=== PATIENT | male | born 1995 | race African-American/Black ===

== ENCOUNTER 2019-07-28 08:59 | Emergency (ER) | payer SELFPAY ==
[2019-07-28 09:04] VITALS: BP 130/85; PULSE 63; RESP 18; TEMP 97.7
--- NOTE | 2019-07-28 09:11 | ED ---
General Adult HPI - General Chief complaint: Recheck/Abnormal Lab/Rx Stated complaint: recheck/doctor's note Time Seen by Provider: 07/28/19 09:00 Source: patient Mode of arrival: ambulatory Limitations: no limitations - History of Present Illness Initial comments: Patient is a 23-year-old male presents emergency department requesting a work note. Patient states that he missed work last Wednesday because he had a stomach ache. States he went home early. Today his boss had told him that he needed a work note if he wanted to return to work. Patient states he feels great at this time. No current abdominal pain. States he never had any nausea or vomiting. No fevers or chills. Denies dysuria, hematuria or difficulty voiding. Denies diarrhea, constipation, melenic stools or hematochezia. No testicular pain or swelling. no discharge. Patient does not have a primary care physician so followed appear. There are no alleviating, precipitating or modifying factors - Related Data Allergies Allergy/AdvReac Type Severity Reaction Status Date / Time No Known Allergies Allergy Verified 07/28/19 09:04 Review of Systems ROS Statement: Those systems with pertinent positive or pertinent negative responses have been documented in the HPI. ROS Other: All systems not noted in ROS Statement are negative. Past Medical History Past Medical History: No Reported History History of Any Multi-Drug Resistant Organisms: None Reported Past Surgical History: No Surgical Hx Reported Past Psychological History: No Psychological Hx Reported Smoking Status: Current every day smoker Past Alcohol Use History: Rare Past Drug Use History: None Reported General Exam Limitations: no limitations Course Vital Signs 07/28/19 09:00 Temperature 97.7 F Pulse Rate 63 Respiratory 18 Rate Blood Pressure 130/85 O2 Sat by Pulse 98 Oximetry Medical Decision Making - Medical Decision Making She arrives and is placed into room 5. A thorough history is obtained and physical exam is performed. Patient arrives asymptomatic. Patient requests work note to go back to work. I do believe that the patient is clear at this time. I do recommend that he establish care with a primary care physician. Return to the emergency room for any new or worsening symptoms. Patient denies any fevers, chills or shortness of breath. No recent contact with someone positive for Kovic. Patient was in agreement treatment plan he is discharged home in stable condition Disposition Clinical Impression: Abdominal pain Disposition: HOME SELF-CARE Condition: Stable Instructions (If sedation given, give patient instructions): Normal Exam (ED) Additional Instructions: You are clear to return to work Is patient prescribed a controlled substance at d/c from ED?: No Referrals: None,Stated [Primary Care Provider] - 1-2 days Time of Disposition: 09:10
== END 2019-07-28 09:18 | disposition home or self-care (01) ==
LOC: EC 08:59
DX: R10.9 Unspecified abdominal pain (principal); F17.200 Nicotine dependence, unspecified, uncomplicated
CPT/HCPCS: 99283

== ENCOUNTER 2020-10-09 14:47 | Emergency (ER) | payer OTHER ==
[2020-10-09] MEDS ORDERED: IPRATROPIUM-ALBUTEROL 3 ML NEB INHALATION STA (16:47)
--- NOTE | 2020-10-09 16:54 | ED ---
General Adult HPI - General Chief complaint: Abdominal Pain Stated complaint: ABD pain Source: patient, RN notes reviewed Mode of arrival: ambulatory Limitations: no limitations - History of Present Illness Initial comments: 24-year-old pleasant male, anal 4, presents to the emergency room with left groin pain for the past 2 weeks. Patient states that it does come and go. He first noticed it while he was at work while lifting. He has been tender for the past 2 weeks but today when he coughs he felt a sharp pain. He states that he has not felt any lumps in his groin or hernias. He denies any testicular pain or penile discharge. No fevers, nausea vomiting or diarrhea. He is a pack and half day smoker -: week(s) (2) Location: abdomen Radiation: non-radiation Severity scale (1-10): 7 Quality: sharp Consistency: intermittent Improves with: none Worsens with: other (cough or lifting) Associated Symptoms: denies other symptoms Treatments Prior to Arrival: none - Related Data Previous Rx's Medication Instructions Recorded Albuterol Nebulized [Ventolin 2.5 mg INHALATION Q4H PRN 30 Days 10/09/20 Nebulized] #1 inhaler predniSONE 50 mg PO DAILY #5 tab 10/09/20 Allergies Allergy/AdvReac Type Severity Reaction Status Date / Time No Known Allergies Allergy Verified 10/09/20 17:20 Review of Systems ROS Statement: Those systems with pertinent positive or pertinent negative responses have been documented in the HPI. ROS Other: All systems not noted in ROS Statement are negative. Past Medical History Past Medical History: No Reported History History of Any Multi-Drug Resistant Organisms: None Reported Past Surgical History: No Surgical Hx Reported Past Psychological History: No Psychological Hx Reported Smoking Status: Current every day smoker Past Alcohol Use History: Occasional Past Drug Use History: Marijuana General Exam Limitations: no limitations General appearance: alert, in no apparent distress Head exam: Present: atraumatic, normocephalic, normal inspection Eye exam: Present: normal appearance, PERRL, EOMI. Absent: scleral icterus, c onjunctival injection, periorbital swelling ENT exam: Present: normal exam, normal oropharynx, mucous membranes moist Neck exam: Present: normal inspection, full ROM. Absent: tenderness, meningismus, lymphadenopathy, thyromegaly Respiratory exam: Present: wheezes (Anteriorly and posteriorly). Absent: respiratory distress, stridor, chest wall tenderness, accessory muscle use, decreased breath sounds Cardiovascular Exam: Present: regular rate, normal rhythm, normal heart sounds. Absent: systolic murmur, diastolic murmur, rubs, gallop, clicks GI/Abdominal exam: Present: soft, tenderness (Left groin), normal bowel sounds. Absent: distended, guarding, rebound, rigid, mass, pulsatile mass, hernia exam: Present: normal inspection. Absent: testicular tenderness, urethral discharge, scrotal swelling External exam: Present: normal external exam. Absent: erythema, swelling, lesions, lacerations Extremities exam: Present: normal inspection, full ROM, normal capillary refill. Absent: tenderness, pedal edema, joint swelling, calf tenderness Back exam: Present: normal inspection, full ROM. Absent: tenderness, CVA tenderness (R), CVA tenderness (L), muscle spasm, paraspinal tenderness, vertebral tenderness, rash noted Neurological exam: Present: alert, oriented X3, CN II-XII intact Psychiatric exam: Present: normal affect, normal mood Skin exam: Present: warm, dry, intact, normal color. Absent: rash Course Vital Signs 10/09/20 10/09/20 10/09/20 15:40 17:23 17:29 Temperature 98.1 F Pulse Rate 67 70 68 Respiratory 20 Rate Blood Pressure 110/73 O2 Sat by Pulse 95 Oximetry Medical Decision Making - Medical Decision Making Chest x-ray shows normal heart mediastinum, lungs are clear no sign of infiltrate. Ultrasound shows no evidence of inguinal hernia at this time. Patient's wheezing has improved after albuterol treatment. He'll be prescribed albuterol and a prednisone taper as directed to follow up with primary care doctor. Case discussed with Dr. Hsu. Disposition Clinical Impression: Wheezing, Abdominal pain Disposition: HOME SELF-CARE Condition: Good Instructions (If sedation given, give patient instructions): How to Use a Metered-Dose Inhaler (ED), Abdominal Pain (ED), Wheezing (ED) Additional Instructions: Do not take Motrin while taking prednisone. Follow-up with primary care doctor in 1 week. Prescriptions: predniSONE 50 mg PO DAILY #5 tab Albuterol Nebulized [Ventolin Nebulized] 2.5 mg INHALATION Q4H PRN 30 Days #1 inhaler PRN Reason: difficulty in breathing Is patient prescribed a controlled substance at d/c from ED?: No Referrals: None,Stated [Primary Care Provider] - 1-2 days Hari Chery MD [STAFF PHYSICIAN] - 1-2 days Time of Disposition: 18:51
--- NOTE | 2020-10-09 18:02 | US ---
EXAMINATION TYPE: US groin LT DATE OF EXAM: 10/09/2020 COMPARISON: NONE CLINICAL HISTORY: assess for hernia. pain in left groin for 2-3 weeks, no injury, no palpable Soft tissue scan of inguinal canal produces no sonographic evidence for hernia at this time. IMPRESSION: No evidence of inguinal hernia.
[2020-10-09] MEDS: predniSONE 50 MG TAB PO STA ×2 (18:37→18:39)
[2020-10-09] MEDS ORDERED: predniSONE 50 MG TAB PO STA (18:37)
--- NOTE | 2020-10-09 18:45 | XR ---
EXAMINATION TYPE: XR chest 2V DATE OF EXAM: 10/09/2020 COMPARISON: NONE HISTORY: Cough TECHNIQUE: 2 views FINDINGS: Heart and mediastinum are normal. Lungs are clear. Diaphragm is normal. Bony thorax is inta ct IMPRESSION: Normal chest.
[2020-10-09 19:08] VITALS: BP 115/69; PULSE 73; RESP 19; TEMP 97.9
== END 2020-10-09 19:07 | disposition home or self-care (01) ==
LOC: EC 14:47
DX: R10.32 Left lower quadrant pain (principal); R06.2 Wheezing; F17.200 Nicotine dependence, unspecified, uncomplicated; F12.90 Cannabis use, unspecified, uncomplicated
CPT/HCPCS: 94640; 71046; 76882; 99284; J7512

== ENCOUNTER 2020-11-19 08:46 | Emergency (ER) | payer BC, OTHER ==
[2020-11-19] MEDS ORDERED: SODIUM CHLORIDE 0.9% 1,000 ML IV STA (08:52)
[2020-11-19] MEDS ORDERED: KETOROLAC 15 MG/ML 1 ML VIAL IVP STA (09:15)
--- NOTE | 2020-11-19 09:16 | ED ---
Abdominal Pain HPI - General Chief Complaint: Abdominal Pain Stated Complaint: Abdominal Pain Time Seen by Provider: 11/19/20 08:49 Source: patient, RN notes reviewed Mode of arrival: ambulatory Limitations: no limitations - History of Present Illness Initial Comments: 25-year-old male presents emergency Department chief complaint of lower abdominal pain. Patient states she's been having worsening pain last 6 weeks she states that he's been admitted several times with no exact answer he states he had Ultram x-ray with no results. Patient denies any dysuria hematuria or penile drainage he states he's had occasional nausea vomitingand diarrhea con stipation melena or hematochezia. Patient states she has some pain rates on towards rectum denies any exact rectal pain. Has no history of GI disorders no history of surgeries. - Related Data Previous Rx's Medication Instructions Recorded Albuterol Nebulized [Ventolin 2.5 mg INHALATION Q4H PRN 30 Days 10/09/20 Nebulized] #1 inhaler predniSONE 50 mg PO DAILY #5 tab 10/09/20 Amoxicillin/Potassium Clav 1 tab PO Q12HR #14 tab 11/19/20 [Augmentin 875-125 Tablet] Allergies Allergy/AdvReac Type Severity Reaction Status Date / Time No Known Allergies Allergy Verified 11/19/20 08:49 Review of Systems ROS Statement: Those systems with pertinent positive or pertinent negative responses have been documented in the HPI. ROS Other: All systems not noted in ROS Statement are negative. Past Medical History Past Medical History: Asthma History of Any Multi-Drug Resistant Organisms: None Reported Past Surgical History: No Surgical Hx Reported Past Psychological History: No Psychological Hx Reported Smoking Status: Current every day smoker Past Alcohol Use History: Occasional Past Drug Use History: Marijuana General Exam Limitations: no limitations General appearance: alert, in no apparent distress ENT exam: Present: normal exam, mucous membranes moist Neck exam: Present: normal inspection, full ROM. Absent: tenderness, mening ismus, lymphadenopathy Respiratory exam: Present: normal lung sounds bilaterally. Absent: respiratory distress, wheezes, rales, rhonchi, stridor Cardiovascular Exam: Present: regular rate, normal rhythm, normal heart sounds. Absent: systolic murmur, diastolic murmur, rubs, gallop, clicks GI/Abdominal exam: Present: soft, tenderness, normal bowel sounds. Absent: distended, guarding, rebound, rigid Back exam: Absent: CVA tenderness (R), CVA tenderness (L) Neurological exam: Present: alert Skin exam: Present: warm, dry, intact, normal color. Absent: rash Course Vital Signs 11/19/20 08:47 Temperature 98.1 F Pulse Rate 73 Respiratory 20 Rate Blood Pressure 114/85 O2 Sat by Pulse 96 Oximetry Medical Decision Making - Medical Decision Making CT shows evidence of colitis. Patient will follow-up with GI, surgery return parameters were discussed. - Lab Data Result diagrams: 11/19/20 09:18 11/19/20 09:18 Lab Results 11/19/20 11/19/20 11/19/20 Range/Units 09:11 09:18 09:18 WBC 4.9 (3.8-10.6) k/uL RBC 5.77 (4.30-5.90) m/uL Hgb 15.6 (13.0-17.5) gm/dL Hct 47.3 (39.0-53.0) % MCV 81.9 (80.0-100.0) fL MCH 27.1 (25.0-35.0) pg MCHC 33.0 (31.0-37.0) g/dL RDW 13.7 (11.5-15.5) % Plt Count 238 (150-450) k/uL MPV 6.4 Neutrophils % 55 % Lymphocytes % 35 % Monocytes % 5 % Eosinophils % 3 % Basophils % 1 % Neutrophils # 2.6 (1.3-7.7) k/uL Lymphocytes # 1.7 (1.0-4.8) k/uL Monocytes # 0.3 (0-1.0) k/uL Eosinophils # 0.1 (0-0.7) k/uL Basophils # 0.0 (0-0.2) k/uL Sodium 142 (137-145) mmol/L Potassium 4.1 (3.5-5.1) mmol/L Chloride 110 H (98-107) mmol/L Carbon Dioxide 24 (22-30) mmol/L Anion Gap 8 mmol/L BUN 16 (9-20) mg/dL Creatinine 1.04 (0.66-1.25) mg/dL Est GFR (CKD-EPI)AfAm >90 (>60 ml/min/1.73 sqM) Est GFR (CKD-EPI)NonAf >90 (>60 ml/min/1.73 sqM) Glucose 95 (74-99) mg/dL Plasma Lactic Acid Rogerio (0.7-2.0) mmol/L Calcium 10.0 (8.4-10.2) mg/dL Total Bilirubin 1.1 (0.2-1.3) mg/dL AST 31 (17-59) U/L ALT 30 (4-49) U/L Alkaline Phosphatase 83 (38-126) U/L Total Protein 7.1 (6.3-8.2) g/dL Albumin 4.6 (3.5-5.0) g/dL Amylase 74 (30-110) U/L Lipase 61 (23-300) U/L Urine Color Yellow Urine Appearance Clear (Clear) Urine pH 5.5 (5.0-8.0) Ur Specific [place] 1.028 (1.001-1.035) Urine Protein Negative (Negative) Urine Glucose (UA) Negative (Negative) Urine Ketones Negative (Negative) Urine Blood Negative (Negative) Urine Nitrite Negative (Negative) Urine Bilirubin Negative (Negative) Urine Urobilinogen <2.0 (<2.0) mg/dL Ur Leukocyte Esterase Negative (Negative) 11/19/20 Range/Units 09:18 WBC (3.8-10.6) k/uL RBC (4.30-5.90) m/uL Hgb (13.0-17.5) gm/dL Hct (39.0-53.0) % MCV (80.0-100.0) fL MCH (25.0-35.0) pg MCHC (31.0-37.0) g/dL RDW (11.5-15.5) % Plt Count (150-450) k/uL MPV Neutrophils % % Lymphocytes % % Monocytes % % Eosinophils % % Basophils % % Neutrophils # (1.3-7.7) k/uL Lymphocytes # (1.0-4.8) k/uL Monocytes # (0-1.0) k/uL Eosinophils # (0-0.7) k/uL Basophils # (0-0.2) k/uL Sodium (137-145) mmol/L Potassium (3.5-5.1) mmol/L Chloride (98-107) mmol/L Carbon Dioxide (22-30) mmol/L Anion Gap mmol/L BUN (9-20) mg/dL Creatinine (0.66-1.25) mg/dL Est GFR (CKD-EPI)AfAm (>60 ml/min/1.73 sqM) Est GFR (CKD-EPI)NonAf (>60 ml/min/1.73 sqM) Glucose (74-99) mg/dL Plasma Lactic Acid Rogerio 0.7 (0.7-2.0) mmol/L Calcium (8.4-10.2) mg/dL Total Bilirubin (0.2-1.3) mg/dL AST (17-59) U/L ALT (4-49) U/L Alkaline Phosphatase (38-126) U/L Total Protein (6.3-8.2) g/dL Albumin (3.5-5.0) g/dL Amylase (30-110) U/L Lipase (23-300) U/L Urine Color Urine Appearance (Clear) Urine pH (5.0-8.0) Ur Specific [place] (1.001-1.035) Urine Protein (Negative) Urine Glucose (UA) (Negative) Urine Ketones (Negative) Urine Blood (Negative) Urine Nitrite (Negative) Urine Bilirubin (Negative) Urine Urobilinogen (<2.0) mg/dL Ur Leukocyte Esterase (Negative) Disposition Clinical Impression: Colitis Disposition: HOME SELF-CARE Condition: Stable Instructions (If sedation given, give patient instructions): Colitis (ED) Additional Instructions: Please return to the Emergency Department if symptoms worsen or any other concerns. Prescriptions: Amoxicillin/Potassium Clav [Augmentin 875-125 Tablet] 1 tab PO Q12HR #14 tab Is patient prescribed a controlled substance at d/c from ED?: No Referrals: None,Stated [Primary Care Provider] - 1-2 days Santi An MD [STAFF PHYSICIAN] - 1-2 days Jordan Burger MD [STAFF PHYSICIAN] - 1-2 days
[2020-11-19 09:23] LABS: Appearance,Urine Clear (Clear); Bilirubin,Urine Negative (Negative); Blood,Urine Negative (Negative); Color,Urine Yellow; Glucose,Urine (UA) Negative (Negative); Ketones,Urine Negative (Negative); Leukocyte Esterase,Urine Negative (Negative); Nitrite,Urine Negative (Negative); PH, Urine 5.5 (5.0-8.0); Protein,Urine Negative (Negative); Specific Gravity,Urine 1.028 (1.001-1.035); Urobilinogen,Urine <2.0 mg/dL (<2.0)
[2020-11-19 09:26] LABS: Basophils % (A) 1 %; Eosinophils # (A) 0.1 k/uL (0-0.7); Eosinophils % (A) 3 %; HCT 47.3 % (39.0-53.0); HGB 15.6 gm/dL (13.0-17.5); Lymphocytes # (A) 1.7 k/uL (1.0-4.8); Lymphocytes % (A) 35 %; MCH 27.1 pg (25.0-35.0); MCV 81.9 fL (80.0-100.0); Mean Platelet Volume 6.4; Monocytes # (A) 0.3 k/uL (0-1.0); Monocytes % (A) 5 %; Neutrophils # (A) 2.6 k/uL (1.3-7.7); Neutrophils % (A) 55 %; Platelet Count 238 k/uL (150-450); RBC 5.77 m/uL (4.30-5.90); RDW 13.7 % (11.5-15.5); WBC 4.9 k/uL (3.8-10.6)
[2020-11-19 09:42] LABS: ALT 30 U/L (4-49); AST 31 U/L (17-59); African American GFR (CKD) >90 (>60 ml/min/1.73 sqM); Albumin 4.6 g/dL (3.5-5.0); Alkaline Phosphatase 83 U/L (38-126); Amylase 74 U/L (30-110); Anion Gap 8 mmol/L; Blood Urea Nitrogen 16 mg/dL (9-20); Carbon Dioxide 24 mmol/L (22-30); Chloride 110 mmol/L (98-107); Glucose 95 mg/dL (74-99); Lipase 61 U/L (23-300); Non-African American GFR(CKD) >90 (>60 ml/min/1.73 sqM); Potassium 4.1 mmol/L (3.5-5.1); Sodium 142 mmol/L (137-145); Total Bilirubin 1.1 mg/dL (0.2-1.3); Total Protein 7.1 g/dL (6.3-8.2)
--- NOTE | 2020-11-19 10:09 | CT ---
EXAMINATION TYPE: CT abdomen pelvis w con DATE OF EXAM: 11/19/2020 COMPARISON: None HISTORY: Abdominal pain-gastric area CT DLP: 648.3 mGycm Automated exposure control for dose reduction was used. TECHNIQUE: Helical acquisition of images from the lung bases through the pelvis have been completed. CONTRAST: Performed without Oral Contrast and with IV Contrast, patient injected with 100 mL of Isovue 300. FINDINGS: There is a small hiatal hernia suspected. LUNG BASES: No significant abnormality is appreciated. AORTA: No significant abnormality is appreciated. LIVER/GB: There is an enhancing lesion within the right lobe of the liver adjacent to the inferior ve na cava measuring approximately 4.3 cm in cephalad to caudal dimension by 3.7 cm in AP dimension by 3 .7 cm in transverse dimension which is not well seen on delayed images through the liver, gallbladder is unremarkable. PANCREAS: No significant abnormality is seen. SPLEEN: No significant abnormality is seen. ADRENALS: No significant abnormality is seen. KIDNEYS: No significant abnormality is seen. REPRODUCTIVE ORGANS: No significant abnormality is seen BOWEL: Question some colonic wall thickening along the descending colon, axial image 22 through 27, no evident appendicitis or bowel obstruction. FREE AIR: No Free Air visible. ASCITES: None visible. PELVIC ADENOPATHY: None visualized. RETROPERITONEAL ADENOPATHY: No Retroperitoneal Adenopathy visible. URINARY BLADDER: No significant abnormality is seen. OSSEOUS STRUCTURES: No significant abnormality is seen. IMPRESSION: DIFFICULT TO EXCLUDE COLITIS, CORRELATE. INDETERMINATE ENHANCING LESION WITHIN THE LIVER COULD REPRES ENT HEMANGIOMA, NUCLEAR MEDICINE RED BLOOD CELL LABELED STUDY OR MRI OF THE LIVER WITH DYNAMIC POSTCO NTRAST IMAGING COULD BE PERFORMED FOR ADDITIONAL EVALUATION. SMALL HIATAL HERNIA.
[2020-11-19 10:43] VITALS: BP 114/70; PULSE 69; RESP 16; TEMP 98.2
== END 2020-11-19 10:43 | disposition home or self-care (01) ==
LOC: EC 08:46
DX: K52.9 Noninfective gastroenteritis and colitis, unspecified (principal); J45.909 Unspecified asthma, uncomplicated; F17.200 Nicotine dependence, unspecified, uncomplicated; F12.90 Cannabis use, unspecified, uncomplicated; Z79.51 Long term (current) use of inhaled steroids
CPT/HCPCS: 36415; 80053; 82150; 83605; 83690; 85025; 81003; 74177; 99284; 96374; 96361; J1885; Q9967

== ENCOUNTER 2021-08-31 05:05 | Emergency (ER) | payer BC, OTHER ==
[2021-08-31 05:15] VITALS: BP 133/78; PULSE 76; RESP 16; TEMP 97.8
[2021-08-31] MEDS ORDERED: ACET/COD 300 MG/30 MG STARTER PACK 6 TAB BTL PO STA (06:30)
[2021-08-31] MEDS ORDERED: HYDROcodone/APAP 5-325MG 1 EACH TAB PO STA (06:30)
--- NOTE | 2021-08-31 06:32 | ED ---
ENT HPI - General Chief complaint: Dental/Oral Stated complaint: Dental Pain Time Seen by Provider: 08/31/21 06:04 Source: patient, RN notes reviewed Mode of arrival: ambulatory Limitations: no limitations - History of Present Illness Initial comments: 25-year-old male presents emergency Department chief complaint of left abdominal pain. Patient states has been bothersome for last couple weeks. Patient states attempting to get an appointment with emergency dental clinic in which they advised patient to emergency room for increasing pain. Patient states he has not had his molars removed states that he is having increasing pain no fevers chills mild swelling. No difficulty breathing or difficulty swallowing other complaints. - Related Data Previous Rx's Medication Instructions Recorded Albuterol Nebulized [Ventolin 2.5 mg INHALATION Q4H PRN 30 Days 10/09/20 Nebulized] #1 inhaler predniSONE 50 mg PO DAILY #5 tab 10/09/20 Amoxicillin/Potassium Clav 1 tab PO Q12HR #14 tab 11/19/20 [Augmentin 875-125 Tablet] Ibuprofen [Motrin] 600 mg PO Q8HR PRN #30 tab 08/31/21 Penicillin V Potassium [Pen Vee K] 500 mg PO QID #40 tablet 08/31/21 Allergies Allergy/AdvReac Type Severity Reaction Status Date / Time No Known Allergies Allergy Verified 08/31/21 05:12 Review of Systems ROS Statement: Those systems with pertinent positive or pertinent negative responses have been documented in the HPI. ROS Other: All systems not noted in ROS Statement are negative. Past Medical History Past Medical History: Asthma History of Any Multi-Drug Resistant Organisms: None Reported Past Surgical History: No Surgical Hx Reported Past Psychological History: No Psychological Hx Reported Smoking Status: Current every day smoker Past Alcohol Use History: Occasional Past Drug Use History: Marijuana General Exam Limitations: no limitations General appearance: alert, in no apparent distress Head exam: Present: atraumatic, normocephalic, normal inspection Eye exam: Present: normal appearance, PERRL, EOMI. Absent: scleral icterus, conjunctival injection, periorbital swelling ENT exam: Present: mucous membranes moist, TM's normal bilaterally. Absent: normal oropharynx (Impacted molar left upper mild erythema no significant swelling no abscess) Neck exam: Present: normal inspection. Absent: tenderness, meningismus, lymphadenopathy Respiratory exam: Present: normal lung sounds bilaterally. Absent: respiratory distress, wheezes, rales, rhonchi, stridor Cardiovascular Exam: Present: regular rate, normal rhythm, normal heart sounds. Absent: systolic murmur, diastolic murmur, rubs, gallop, clicks Course Vital Signs 08/31/21 05:13 Temperature 97.8 F Pulse Rate 76 Respiratory 16 Rate Blood Pressure 133/78 O2 Sat by Pulse 96 Oximetry Medical Decision Making - Medical Decision Making Patient has impacted molars causing discomfort, concerning for increasing pain with infection patient was started on antibiotics advised follow-up with Dr. martinez Disposition Clinical Impression: Impacted molar, Toothache Disposition: HOME SELF-CARE Condition: Stable Instructions (If sedation given, give patient instructions): Toothache (ED) Additional Instructions: Please return to the Emergency Department if symptoms worsen or any other concerns. Prescriptions: Ibuprofen [Motrin] 600 mg PO Q8HR PRN #30 tab PRN Reason: Pain Penicillin V Potassium [Pen Vee K] 500 mg PO QID #40 tablet Is patient prescribed a controlled substance at d/c from ED?: No Referrals: None,Stated [Primary Care Provider] - 1-2 days Gigi Martinez DDS [STAFF PHYSICIAN] - 1-2 days Time of Disposition: 06:31
== END 2021-08-31 06:43 | disposition home or self-care (01) ==
LOC: EC 05:05
DX: K08.89 Other specified disorders of teeth and supporting structures (principal); K01.1 Impacted teeth; J45.909 Unspecified asthma, uncomplicated; F17.200 Nicotine dependence, unspecified, uncomplicated
CPT/HCPCS: 99283

== ENCOUNTER 2022-09-21 05:08 | Emergency (ER) | payer BC, OTHER ==
[2022-09-21 05:22] VITALS: TEMP 98.6
[2022-09-21] MEDS ORDERED: LIDOCAINE 2% GLYDO JELLY 11 ML APPL PO ONE (05:56)
--- NOTE | 2022-09-21 06:00 | ED ---
ENT HPI - General Chief complaint: ENT Stated complaint: Jane in mouth Time Seen by Provider: 09/21/22 05:53 Source: patient, RN notes reviewed Mode of arrival: ambulatory Limitations: no limitations - History of Present Illness Initial comments: This is a 26-year-old male who presents to the emergency department for mouth pain. Patient states that he was drinking a lot of alcohol this weekend and yesterday he was hung over and proceeded to vomit many times. He states that he had thrown up a lot of stomach bile and now has pain all over his mouth. He is not currently nauseous, but states that his mouth feels like it is on fire. Denies any fevers, chills, sore throat, cough, dyspnea, chest pain, palpitations, abdominal pain, nausea, vomiting, diarrhea, back pain, or headaches. - Related Data Previous Rx's Medication Instructions Recorded Albuterol Nebulized [Ventolin 2.5 mg INHALATION Q4H PRN 30 Days 10/09/20 Nebulized] #1 inhaler predniSONE 50 mg PO DAILY #5 tab 10/09/20 Amoxicillin/Potassium Clav 1 tab PO Q12HR #14 tab 11/19/20 [Augmentin 875-125 Tablet] Ibuprofen [Motrin] 600 mg PO Q8HR PRN #30 tab 08/31/21 Penicillin V Potassium [Pen Vee K] 500 mg PO QID #40 tablet 08/31/21 lidocaine HCL [Lidocaine HCl 5 ml MM Q3H PRN #100 ml 09/21/22 Viscous] Allergies Allergy/AdvReac Type Severity Reaction Status Date / Time No Known Allergies Allergy Verified 09/21/22 05:22 Review of Systems ROS Statement: Those systems with pertinent positive or pertinent negative responses have been documented in the HPI. ROS Other: All systems not noted in ROS Statement are negative. Past Medical History Past Medical History: Asthma History of Any Multi-Drug Resistant Organisms: None Reported Past Surgical History: No Surgical Hx Reported Past Psychological History: No Psychological Hx Reported Smoking Status: Current every day smoker Past Alcohol Use History: Occasional Past Drug Use History: Marijuana General Exam Limitations: no limitations General appearance: alert, in no apparent distress Head exam: Present: atraumatic, normocephalic, normal inspection ENT exam: Present: normal exam, normal oropharynx, mucous membranes moist Neck exam: Present: normal inspection. Absent: tenderness, meningismus, lymphadenopathy Respiratory exam: Present: normal lung sounds bilaterally. Absent: respiratory distress, wheezes, rales, rhonchi, stridor Cardiovascular Exam: Present: regular rate, normal rhythm, normal heart sounds. Absent: systolic murmur, diastolic murmur, rubs, gallop, clicks Neurological exam: Present: alert, oriented X3, CN II-XII intact Psychiatric exam: Present: normal affect, normal mood Skin exam: Present: warm, dry, intact, normal color. Absent: rash Course Vital Signs 09/21/22 09/21/22 05:20 07:16 Temperature 98.6 F Pulse Rate 106 H 73 Respiratory 18 16 Rate Blood Pressure 119/80 133/87 O2 Sat by Pulse 96 97 Oximetry Medical Decision Making - Medical Decision Making This is a 26-year-old male who presents to the emergency department for mouth pain. Was pt. sent in by a medical professional or institution? @ -No Did you speak to anyone other than the patient for history? @ -No Did you review nursing and triage notes? @ -Yes, and I agree, it is accurate with regards to the patient's symptoms. Were old charts reviewed? @ -No Differential Diagnosis? @ -Differential Mouth Pain: Burn, HSV, malignancy, injury, this is not meant to be an all-inclusive list. EKG interpreted by me (3pts min.)? @ -Not obtained X-rays interpreted by me (1pt min.)? @ -Not obtained CT interpreted by me (1pt min.)? @ -Not obtained U/S interpreted by me (1pt. min.)? @ -Not obtained What testing was considered but not performed? (CT, X-rays, U/S, labs)? Why? @ -None What meds were considered but not given? Why? @ -None Did you discuss the management of the patient with other professionals? @ -No Did you reconcile home meds? @ -No Was smoking cessation discussed for >3mins.? @ -No Was critical care preformed (if so, how long)? @ -No Were there social determinants of health that impacted care today? How? (Homelessness, low income, unemployed, alcoholism, drug addiction, transportation, low edu. Level, literacy, decrease access to med. care, nursing home, rehab)? @ -No Was there de-escalation of care discussed even if they declined? (Discuss DNR or withdrawal of care, Hospice)? @ -No What co-morbidities impacted this encounter? (DM, HTN, Smoking, COPD, CAD, Cancer, CVA, Hep., AIDS, mental health diagnosis, sleep apnea, morbid obesity)? @ -None Was patient admitted / discharged? @ -Discharged. I did not identify any open wounds or lesions in the mouth to suggest a burn or severe injury. We were out of Viscous Lidocaine, so he was subsequently given a GI cocktail containing lidocaine. He found this beneficial for the pain in the throat, but states that he still had burning in his mouth. He was subsequently given Hurricaine spray in order to localize the numbing effects to the roof of his mouth where he still had pain. He found the Hurricaine spray to be more helpful for this. Overall patient felt improved and requested discharge home. Prescription for viscous lidocaine provided with dosing instructions reviewed. Also advised to alternate with ibuprofen and Tylenol for additional relief. Undiagnosed new problem with uncertain prognosis? @ -None Drug Therapy requiring intensive monitoring for toxicity (Heparin, Nitro, Insulin, Cardizem)? @ -None Were any procedures done? @ -None Diagnosis/symptom? @ -Mouth pain Acute, or Chronic, or Acute on Chronic? @ -Acute Uncomplicated (without systemic symptoms) or Complicated (systemic symptoms)? @ -Uncomplicated Side effects of treatment? @ -None Exacerbation, Progression, or Severe Exacerbation] @ -Not applicable Poses a threat to life or bodily function? @ -No Return precautions reviewed in depth, the patient is instructed to return to the emergency department with any new, worsening, or concerning symptoms. Patient verbalized understanding. This case was discussed in detail with the attending ED physician, Dr. Emmanuel. Presentation, findings, and treatment plan discussed in detail as well. Disposition Clinical Impression: Mouth pain Disposition: HOME SELF-CARE Condition: Fair Instructions (If sedation given, give patient instructions): Benzocaine (By mouth) Additional Instructions: Return to the emergency department with any new, worsening, or concerning symptoms. Alternate with ibuprofen and Tylenol as needed for pain relief. You can use the viscous lidocaine up to every 3 hours as needed. You can also use the spray provided multiple times daily as needed to help with discomfort. Follow up with your primary care provider in 1-2 days. Prescriptions: lidocaine HCL [Lidocaine HCl Viscous] 5 ml MM Q3H PRN #100 ml PRN Reason: Pain Is patient prescribed a controlled substance at d/c from ED?: No Referrals: None,Stated [Primary Care Provider] - 1-2 days
[2022-09-21] MEDS ORDERED: MAG HYDROX/AL HYDROX/SIMETH 30 ML, HYOSCYAMINE ELIXIR 10 ML, LIDOCAINE 2% GLYDO JELLY 1... PO STA ×3 (06:01)
[2022-09-21] MEDS ORDERED: BENZOCAINE SPRAY 1 CAN MUCOUS MEM ONE (06:28)
[2022-09-21] MEDS ORDERED: ACET/COD 300 MG/30 MG STARTER PACK 6 TAB BTL PO STA (07:04)
[2022-09-21] MEDS ORDERED: IBUPROFEN 600 MG STARTER PACK 4 TAB BTL PO STA (07:04)
[2022-09-21 07:22] VITALS: BP 133/87; PULSE 73; RESP 16
== END 2022-09-21 07:22 | disposition home or self-care (01) ==
LOC: EC 05:08
DX: T28.0XXA Burn of mouth and pharynx, initial encounter (principal); J45.909 Unspecified asthma, uncomplicated; F12.90 Cannabis use, unspecified, uncomplicated; F17.200 Nicotine dependence, unspecified, uncomplicated
CPT/HCPCS: 99283

== ENCOUNTER 2024-06-01 16:29 | Emergency (ER) | payer BC, OTHER ==
--- NOTE | 2024-06-01 17:09 | XR ---
EXAMINATION TYPE: XR chest 2V DATE OF EXAM: 06/01/2024 5:02 PM COMPARISON: Chest radiographs from 10/09/2020 TECHNIQUE: XR chest 2V Frontal and lateral views of the chest. CLINICAL INDICATION:Male, 28 years old with history of PAIN; FINDINGS: Lungs/Pleura: There is no evidence of pleural effusion, focal consolidation, or pneumothorax. Pulmonary vascularity: Unremarkable. Heart/mediastinum: Cardiomediastinal silhouette is unremarkable. Musculoskeletal: No acute osseous pathology. IMPRESSION: No acute cardiopulmonary disease/process. [facility], , 06/01/2024 5:07 PM
--- NOTE | 2024-06-01 17:10 | XR ---
EXAMINATION TYPE: XR shoulder complete RT DATE OF EXAM: 06/01/2024 5:01 PM INDICATION: Patient age:Male; 28 years old; Reason for study: right shoulder injury; pain COMPARISON: Chest radiograph the same day. TECHNIQUE: The right shoulder was examined in AP, internally rotated and scapular Y projections. . FINDINGS: No evidence of acute osseous pathology, joint dislocation, or soft tissue swelling. The remaining por tions of the visualized chest are unremarkable. IMPRESSION: No acute osseous pathology. [facility], , 06/01/2024 5:07 PM
[2024-06-01] MEDS: CYCLOBENZAPRINE 10 MG TAB PO STA (17:45)
[2024-06-01] MEDS: KETOROLAC 15 MG/ML 1 ML VIAL IM STA (17:46)
[2024-06-01] MEDS: LIDOCAINE 4% PATCH TOPICAL ONE (17:47)
[2024-06-01 17:51] VITALS: RESP 20
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
[2024-06-01] MEDS: IBUPROFEN 800 MG TAB PO STA (18:11)
[2024-06-01 18:42] VITALS: BP 132/80; PULSE 74; TEMP 98.2
== END 2024-06-01 18:50 | disposition home or self-care (01) ==
LOC: EC 16:29
DX: S20.211A Contusion of right front wall of thorax, initial encounter (principal); F17.200 Nicotine dependence, unspecified, uncomplicated; V89.2XXA Person injured in unspecified motor-vehicle accident, traffic, initial encounter; Y92.410 Unspecified street and highway as the place of occurrence of the external cause
CPT/HCPCS: 71046; 93005; 99284